=== PATIENT | male | born 1980 | race Caucasian/White ===

== ENCOUNTER 2018-07-10 17:10 | Emergency (ER) | payer OTHER, SELFPAY ==
[2018-07-10 17:11] VITALS: BP 124/74; PULSE 55; RESP 16; TEMP 36.4; O2SAT 98; BMI 26.4
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
[2018-07-10] MEDS: Morphine 4 MG/ML Syringe IV (17:37)
[2018-07-10] MEDS: Ondansetron 4 MG/2 ML Vial IV (17:37)
[2018-07-10] MEDS: 0.9% Normal Saline 1,000 ML 150 ML IV (17:38)
[2018-07-10 17:49] LABS: Hemoglobin 15.5 g/dl (13.0-16.5); Mean Corp Hgb Conc 33.7 g/gl (32-36); Mean Corpuscular Hgb 28.8 pg (27.0-32.0); Mean Corpuscular Volume 85.5 fL (80-94); Mean Platelet Vol. 9.2 fl (6.2-12.0); Platelet Count 295 K/mm3 (150-450); RBC Distribution Width CV 12.6 % (11.6-14.6); RBC Distribution Width SD 39.3 fl (35.1-43.9); Red Blood Count 5.38 M/mm3 (4.6-6.2); Scan Indicated on CBC? Y/N NO; White Blood Count 15.2 K/mm3 (4.4-11.0)
[2018-07-10 18:04] LABS: Anion Gap 7 (5-15); BUN 24 mg/dL (7-18); Calcium,Total 8.5 mg/dL (8.5-10.1); Chloride 104 mmol/L (98-107); Creatinine, Serum 1.33 mg/dL (0.70-1.30); EST Glomerular Filtration Rate 64 mL/min (>60); Est Glom Filt Rate - Afr Amer 77 mL/min (>60); Estimated Creatinine Clearance 73.57 ml/min; Glucose 116 mg/dL (74-106); Potassium 3.8 mmol/L (3.5-5.1); Sodium Level 139 mmol/L (136-145)
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
[2018-07-10] MEDS: Cefazolin 1 GM/50 ML BAG IV (18:23)
[2018-07-10] MEDS: HYDROmorphone 1 MG/ML Syringe IV (18:49)
[2018-07-10] MEDS: Diphth,Pertuss(Acell),Tet Vac 0.5 ML Vial IM (18:58)
[2018-07-10 19:10] VITALS: BP 129/69; PULSE 72; RESP 18; O2SAT 100
[2018-07-10 20:13] VITALS: BP 129/69; PULSE 72; RESP 16; O2SAT 100
== END 2018-07-10 20:12 | disposition short-term general hospital (02) ==
PROVIDERS: Emergency Provider Emergency Medicine; Family Provider Family Medicine; PCP Family Medicine
DX: S52.592B Other fractures of lower end of left radius, initial encounter for open fracture type I or II (principal); S52.692B Other fracture of lower end of left ulna, initial encounter for open fracture type I or II; S40.012A Contusion of left shoulder, initial encounter; S00.81XA Abrasion of other part of head, initial encounter; V19.88XA Pedal cyclist (driver) (passenger) injured in other specified transport accidents, initial encounter; Y93.55 Activity, bike riding; Y92.9 Unspecified place or not applicable; Y99.8 Other external cause status
CPT/HCPCS: 73030; 73090; 80048; 85027; 90715; 96365; 96375; 99285; J7030; A4216; J2405

== ENCOUNTER 2020-07-04 11:59 | Outpatient (RCR) | payer OTHER, SELFPAY | END 2020-08-20 23:59 | LOC: IMMUN 11:59 | PROVIDERS: PCP Family Medicine; Referring Provider Family Medicine; Visit Provider Family Medicine | DX: Z23 Encounter for immunization (principal) | CPT/HCPCS: 0001A; 0002A; 91300 ==

== ENCOUNTER → 2020-10-21 10:06 | Outpatient (CLI) | payer OTHER, SELFPAY ==
[2020-10-21 12:34] LABS: Cholesterol 210 mg/dL (200); High Density Lipoprotein 47 mg/dL; Triglycerides 151 mg/dL; Very Low Density Lipoprotein 30 mg/dL (5-40)
== END ==
PROVIDERS: PCP Family Medicine; Referring Provider Family Medicine; Visit Provider Family Medicine
DX: Z13.220 Encounter for screening for lipoid disorders (principal)
CPT/HCPCS: 36415; 80061

== ENCOUNTER 2022-06-10 12:30 | Outpatient (RCR) | payer BC, SELFPAY ==
--- NOTE | 2022-04-30 13:24 | HP.PTEVAL_ITS ---
Patient's Visit Information JOHN CURRY is a 41 year old M referred to Physical Therapy by Maite Weber NP-C with a diagnosis of LOW BACK PAIN. Date of Evaluation: 04/29/22 Physical Therapist: Yunior Eagle, PT, Cert MDT, OCS - Visit Plan Frequency: 2x /Week Duration: 4 Weeks Plan: PT INTERVERIONS FAWAD EX'S ,MANUAL THERAPY ,DLS ,LE FLEXABLITY/ANR STRETCHING AND MODALTIES FOR PAIN - Subjective This 41 y/o male presents to physical therapy with lumbar pain. Patient has have had pain in right leg ~ 4-6 months. Location in right glut and hamstrings and tingling in foot. Patient most recently had severe pain ~ 2 1/2 weeks ago felt sharp pain explosion type of pain. Several days prior shoveling snow. Symptoms getting better . Patient has been very active. Seen SENIOR IT ARCHITECT 2weeks then recommended PT. Patient may get MRI. Aggravating factors sitting ,bending ,lifting ,AM . Alleviating symptoms better with walking ,standing. Coughing/sneezing+ . Bowel/bladder-. C/O paresthesia/tingling right leg. Patient pain medication. No x-rays. No prior PT or any other treatment. SOCIAL: . VOCATION: Clinical Research Specialist Physics, thermal physics - Pain Right Back Pain Intensity (Out of 10): 2 Pain Intensity Range: 10 Right Lower Extremity Pain Intensity (Out of 10): 2 Pain Intensity Range: 10 - Objective POSTURE: decrease lordosis ,left lateral shift deformity mild. NEURO: c/o paresthesia/tingling ,right leg , +ANR ,reflexes L3-4,L4-5,L5-S1 bilateral hyperreflexia. PALPATION: unremarkable. GAIT: ambulates with antalgic gait decrease stance time shift deformity. MMT: quads right 3+ due to + ANR , hamstrings 4/5 ,ankle 4/5 ,hip flexion 4/5 ,left 4/5. FLEXABILITY: hamstrings severe loss due to + ANR LEFT. LUMBAR ROM: flexion mod loss pain ,extension severe loss pain ,side glides mod loss pain - Special Tests L/S Slump test left side: Positive L/S Slump test right side: Positive L/S Left Straight Leg Raise: Negative L/S Right Straight Leg Raise: Positive Lumbar Standing: Flexion - Mechanical Response: No effect Lumbar Standing: Flexion - Symptoms During Testing: Peripheralizing Lumbar Standing: Flexion - Symptoms After Testing: Worse Lumbar Standing: Extension - Mechanical Response: No effect Lumbar Standing: Extension - Symptoms During Testing: Increases Lumbar Standing: Extension - Symptoms After Testing: Worse Lumbar Standing: Right Side Glides - Mechanical Response: No effect Lumbar Standing: Right Side [place] - Symptoms During Testing: Increases Lumbar Standing: Left Side [place] - Mechanical Response: No effect Lumbar Standing: Left Side [place] - Symptoms During Testing: Increases Lumbar Standing: Left Side [place] - Symptoms After Testing: No worse Lumbar Lying: Flexion - Mechanical Response: No effect Lumbar Lying: Flexion - Symptoms During Testing: Peripheralizing Lumbar Lying: Flexion - Symptoms After Testing: Worse Lumbar Lying: Extension - Mechanical Response: No effect Lumbar Lying: Extension - Symptoms During Testing: Increases Lumbar Lying: Extension - Symptoms After Testing: Worse - Balance/Special Test Scores Oswestry Low Back Score: 18 - Goals Goal 1:: I with HEP for lumbar Goal Time Frame: 4-6 Weeks Goal 2:: Patient improve posture/body mechanics and sitting posture 90 % of the time Goal Time Frame: 4-6 Weeks Goal 3:: Patient to demonstrate 50% improvement with increase function and less pain. Goal Time Frame: 4-6 Weeks Goal 4:: Patient improve lumbar ROM for function of recovery to put on shoes Goal Time Frame: 4-6 Weeks Goal 5:: Patient resolve ANR 50% to improve gait and function Goal Time Frame: 4-6 Weeks Goal 6:: Patient improve back oswestry score by 5 points to improve QOL Goal Time Frame: 4-6 Weeks - Rehabilitation Potential Physical Therapy Diagnosis: This patient has lumbar derangement with symptoms below knee with + signs of HNP flexion increase as well ass extension with poor ROM,. + ANR .+ SLR ,pain worse with positioning and motion testing , thus benefit from skilled PT, may need MRI Rehabilitation Potential: Good - Anticipated Interventions Patient/Client Instruction: Educate patient on: Condition, Plan of Care For the Purpose of:: To decrease pain, To increase ROM, To improve muscle performance and motor function, To increase tolerance to activity/condition/posi tion, To improve ability of physical actions for home/community/work/leisure, To improve gait and locomotor functions, To improve health of tissue, To decrease soft tissue restriction, To increase flexibility/ROM, To improve endurance, To reduce risk of recurrence, To prevent re-injury Therapeutic Exercise to Include: Strength training, Endurance training, Body mechanics, Postural training, Flexibilty training, Dynamic Lumbar Stabilization, Fawad Exercises For the Purpose of:: To decrease pain, To increase ROM, To improve muscle performance and motor function, To increase tolerance to activity/condition/position, To improve ability of physical actions for home/community/work/leisure, To improve gait and locomotor functions, To improve health of tissue, To decrease soft tissue restriction, To increase flexibility/ROM, To reduce risk of recurrence, To prevent re-injury Manual Therapy Techniques to Include: Mobilization Comment: LUMBAR For the Purpose of:: To decrease pain, To increase ROM, To improve nutrient delivery to tissue, To improve health of tissue, To decrease soft tissue restriction, To increase flexibility/ROM TENS: Yes IF ES: Yes Cryotherapy (ice pack, ice massage): Yes Thermo therapy (hot pack): Yes Ultrasound (thermal/non thermal): Yes For the Purpose of:: To decrease pain, To increase ROM, To improve nutrient delivery to tissue, To increase oxygenation perfusion, To improve health of tissue, To decrease soft tissue restriction Thank you for the opportunity to evaluate your patient. For Medicare and Medicare HMO plans, please review the plan of care and approve it. It will need to be FAXED BACK to us at [phone] for Medicare purposes. For Medicare only, by signing this I certify the plan of care. Please let me know if there are questions or concerns regarding this plan of care. Physician Signature: Date:
--- NOTE | 2022-10-11 17:54 | HP.PTDCSUM_ITS ---
Discharge Summary D/C summary: It has been my pleasure to treat JOHN CURRY referred by JULES Turner, with the diagnosis of LOW BACK PAIN for a total of 12 visit(s). Discharge Date: Please see the following information for a summary of their discharge status. Subjective Subjective: Today more pain ,but yesterday was worse 6-7/10 especially with transitional movements Pain Right Back: Pain Intensity (Out of 10): 0 Right Lower Extremity: Pain Intensity (Out of 10): 3 Overall Improvement % Improvement: 40 Objective Objective/Function: Patient will benefit from MRI DID okay with ex's ,pain increased with supine-sit unable to return to function of recovery ,shift deformity improving Goals Goal 1:: I with HEP for lumbar Goal 2:: Patient improve posture/body mechanics and sitting posture 90 % of the time Goal 3:: Patient to demonstrate 50% improvement with increase function and less pain. Goal 4:: Patient improve lumbar ROM for function of recovery to put on shoes Goal 5:: Patient resolve ANR 50% to improve gait and function Goal 6:: Patient improve back oswestry score by 5 points to improve QOL Plan Plan: RECOMMEND MRI D/C Information d/c sentence: If there are questions or concerns regarding this patient's physical therapy, please feel free to call me at [phone]. Thank you for the referral of this patient. Sincerely, Yunior Eagle, PT, Cert MDT, OCS Balance/Gait/Functional tests Balance/Special Test Scores Oswestry Low Back Score: 18
== END 2022-06-10 19:00 | disposition home or self-care (01) ==
LOC: PT 12:30
PROVIDERS: PCP Family Medicine; Referring Provider Nurse Practitioner Family; Visit Provider Nurse Practitioner Family
DX: M54.50 Low back pain, unspecified (principal)
CPT/HCPCS: 97014; 97110; 97162; G0283

== ENCOUNTER → 2022-06-20 | Outpatient (CLI) | payer BC, SELFPAY ==
--- NOTE | 2022-06-20 07:39 | MRI_ITS ---
STUDY: MRI LUMBAR SPINE WITHOUT CONTRAST REASON FOR EXAM: Male, 41 years old. Back pain. TECHNIQUE: Standardized fat and water weighted pulse sequences were obtained in the sagittal and axial planes. COMPARISON: CT abdomen and pelvis with contrast 08/07/2012. FINDINGS: T10-T11, T11-T12 and T12-L1: Normal endplates. Normal disc height, hydration and morphology. No ventral extradural defects. Normal central canal and bilateral intervertebral neural foramina. Normal lumbar lordosis. There is no substantial scoliosis. Normal conus medullaris that terminates at the T12-L1 disc space level. L1-2: Normal endplates. Normal disc height, hydration and morphology. Normal bilateral facet joints. Normal central canal and bilateral lateral recesses. Normal bilateral intervertebral neural foramina. L2-3: Normal endplates. Normal disc height, hydration and morphology. Normal bilateral facet joints. Normal central canal and bilateral lateral recesses. Normal bilateral intervertebral neural foramina. L3-4: Normal endplates. Normal disc height, hydration and morphology. Normal bilateral facet joints. Normal central canal and bilateral lateral recesses. Normal bilateral intervertebral neural foramina. L4-5: Normal endplates. Normal disc height. Minimal retrolisthesis of L4 on L5. Mild bilateral degenerative facet arthropathy. Capacious central canal and bilateral lateral recesses. Normal bilateral intervertebral neural foramina. L5-S1: Moderate Modic type I degenerative vertebral marrow edema underneath the vertebral endplates. Pronounced disc space height narrowing. Grade 2 anterolisthesis of L5 on S1. Bilateral L5 pars defects. Normal facet joints. Normal central canal and bilateral lateral recesses. Severe stenosis of the bilateral intervertebral neural foramina with impingement/entrapment of both L5 nerves. Normal visualized sacral ala. Normal visualized paraspinous soft tissue structures. MRI/Spine Lumbar (Routine) IMPRESSION: 1. Severe stenosis of the bilateral L5-S1 intervertebral neural foramina with impingement/entrapment of the bilateral L5 nerves, grade 2 anterolisthesis of L5 on S1 with pronounced disc space height narrowing and moderate L5-S1 intervertebral osteochondritis (Modic type I). In my opinion, this was present previously on CT abdomen and pelvis of 08/07/2012 and without obvious significant change of the severe stenosis of the bilateral L5-S1 intervertebral neural foramina. 2. No MRI evidence of lumbar extruded disc fragment. Electronically Signed: Seamus Alarcon MD at 9:54 EDT ,
== END | disposition home or self-care (01) ==
PROVIDERS: PCP Family Medicine; Referring Provider Nurse Practitioner Family; Visit Provider Nurse Practitioner Family
DX: M54.16 Radiculopathy, lumbar region (principal)
CPT/HCPCS: 72148

== ENCOUNTER → 2022-07-06 | Outpatient (CLI) | payer BC, SELFPAY ==
--- NOTE | 2022-07-06 15:52 | RAD_ITS ---
EXAM: XR LUMBOSACRAL SPINE COMPLETE WITH FLEXION/EXTENSION, 6 OR MORE VIEWS CLINICAL INDICATION: BACK PAIN TECHNIQUE: Lateral, frontal, oblique and lateral flexion/extension views of the lumbar spine and sacrum. This report was created using [employer] technology. COMPARISON: None. FINDINGS: VERTEBRAE: There is anterior spondylolisthesis of L5 and S1 of 1.3 cm. There is a bilateral pars defect at L5. There is mild increase in the anterior listhesis on extension views measuring 1.7 cm. Preserved vertebral body height. No fracture. Preservation of the normal lumbar lordosis. No significant facet arthropathy. DISC SPACES: There is disc space narrowing at L5-S1. GASTROINTESTINAL TRACT: Unremarkable as visualized. Included bowel gas pattern is non-obstructive. RAD/L/S Spine w Bend Min 6 Vw IMPRESSION: Anterior spondylolisthesis of L5 and S1 which increases on extension views. No acute osseous abnormalities are identified. Electronically Signed: Alexis Jackson MD at 0:13 EDT ,
== END | disposition home or self-care (01) ==
LOC: MTLAB 15:51
PROVIDERS: PCP Family Medicine; Referring Provider Family Medicine; Visit Provider Family Medicine
DX: M54.16 Radiculopathy, lumbar region (principal)
CPT/HCPCS: 72114